=== PATIENT | male | born 1965 | race African-American/Black ===

== ENCOUNTER 2018-10-15 14:33 | Emergency (ER) | payer SELFPAY ==
[~2018-10-15] VITALS: Ht 185.4 cm; Wt 87.5 kg
[2018-10-15] MEDS ORDERED: CARVEDILOL 12.5 MG TABLET. PO STA (14:59)
[2018-10-15] MEDS ORDERED: LISINOPRIL 10 MG TABLET PO ONE (15:00)
[2018-10-15] MEDS ORDERED: hydroCHLOROthiazide 12.5 MG CAPSULE PO ONE (15:00)
--- NOTE | 2018-10-15 15:40 | RAD ---
Examination: 4 views of the right knee and 3 views of the right ankle COMPARISON: None available HISTORY: History of fall, pain COMPARISON: None available. FINDINGS: The alignment of the knee joint grossly appears unremarkable. There is no obvious acute fracture or dislocation identified. Small knee joint effusion. Mild probable soft tissue swelling identified anterior to the knee joint. The alignment of the ankle mortise grossly appears unremarkable. Mild soft tissue swelling identified lateral to lateral malleolus IMPRESSION: 1. No obvious acute fracture is evident. 2. Mild soft tissue swelling identified to lateral malleolus and anterior to the knee joint could be soft tissue swelling or injury.Small knee joint effusion. Electronically signed by: Pedro Childers MD (10/15/2018 3:37 PM) [place] [id number]
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
[2018-10-15 16:29] VITALS: BP 168/94
[2018-10-15] MEDS ORDERED: CARV12.5 PO (16:34)
[2018-10-15] MEDS ORDERED: LISI1TAB3 PO (16:34)
== END 2018-10-15 16:39 | disposition home or self-care (01) ==
LOC: ER 14:33
DX: S83.8X1A Sprain of other specified parts of right knee, initial encounter (principal); S93.491A Sprain of other ligament of right ankle, initial encounter; I10 Essential (primary) hypertension; Z76.0 Encounter for issue of repeat prescription; W18.39XA Other fall on same level, initial encounter; Y93.89 Activity, other specified; Y92.89 Other specified places as the place of occurrence of the external cause; Y99.8 Other external cause status
CPT/HCPCS: 73564; 73610; 99284

== ENCOUNTER 2018-12-24 11:59 | Emergency (ER) | payer MEDICARE ==
[~2018-12-24] VITALS: Ht 185.4 cm; Wt 88.5 kg
[~2018-12-24 11:59] MED LIST: CARV12.5 PO; LISI1TAB3 PO
--- NOTE | 2018-12-24 12:16 | PHYS DOC ---
Past Medical History Past Medical History: Hypertension Past Surgical History: No Surgical History Alcohol Use: Sober Drug Use: Marijuana Adult General Chief Complaint Chief Complaint: NEURO SYMPTOMS/DEFICITS HPI HPI 53-year-old male presenting the emergency room today with right arm weakness and numbness started at 9 PM last night. Patient noticed symptoms on December 23, 2018. He denies any slurred speech or facial droop. He has a history of high blood pressure. Otherwise he denies any symptoms. Duration constant/mildly improving. No alleviating or exacerbating factors. It seemed to come on all of a sudden. Past medical history: Hypertension Surgical history: None Social history former smoker, former drinker, occasional marijuana use. Allergies: Shellfish ROS neg for chest pain shortness of breath abdominal pain fevers chills headache vision changes or double vision or difficulty walking. All other review of systems is negative. ED course: 53-year-old male presenting with right arm weakness and numbness. Head CT ordered along with blood work EKG and angiogram of the head neck. EKG obtained and reviewed by myself shows sinus bradycardia. ST segments congruent. Not suggestive of ACS. Nonspecific T-wave flattening and inversions in the inferior leads. CT angiogram read decreased contrast opacification in the middle cerebral artery. Pt is not a TPA candidate due to timing. greater than 4.5 hours since lkw. Given the timeframe of his symptoms, I called the [facility] to consult on whether mechanical thrombectomy would be an option. Head CT was negative. Lab work was unremarkable. I spoke with Dr. Mooney who recommended transfer for evaluation for possible thrombectomy. The patient was then transferred emergently for evaluation. Current Medications Current Medications Current Medications Medications (Trade) Dose Ordered Sig/Kirti Start Time Stop Time Status Last Admin Dose Admin Info (CONTRAST GIVEN -- Rx MONITORING) 1 each PRN DAILY PRN 12/24/18 13:15 12/24/18 15:46 DC Iohexol (Omnipaque 350 Mg/ml) 75 ml 1X ONCE 12/24/18 13:15 12/24/18 13:16 DC 12/24/18 13:45 75 ML Allergies Allergies Allergies Coded Allergies Type Severity Reaction Last Updated Verified No Known Drug Allergies 10/15/18 No Physical Exam Physical Exam Constitutional: Well developed, well nourished, no acute distress, non-toxic appearance. [] HENT: Normocephalic, atraumatic, bilateral external ears normal, oropharynx moist, no oral exudates, nose normal. [] Eyes: PERRLA, EOMI, conjunctiva normal, no discharge. [] Neck: Normal range of motion, no tenderness, supple, no stridor. [] Cardiovascular:Heart rate regular rhythm, no murmur [] Lungs & Thorax: Bilateral breath sounds clear to auscultation [] Abdomen: Bowel sounds normal, soft, no tenderness, no masses, no pulsatile masses. [] Skin: Warm, dry, no erythema, no rash. [] Back: No tenderness, no CVA tenderness. [] Extremities: No tenderness, no cyanosis, no clubbing, ROM intact, no edema. [] Neurologic: Mental status: Awake oriented and alert x3 Cranial nerves: Extraocular movements intact, eyebrows edna bilaterally, smile symmetric, uvula elevation nl, shoulder shrug intact bilaterally, tongue protrusion normal DTRs: 2+ Sensation: equal and normal in all extremities Strength: 5/5 in upper and lower extremities bilaterally Finger to nose and heel to melissa is within normal limits. Psychologic: Affect normal, judgement normal, mood normal. [] Current Patient Data Vital Signs Vital Signs Date Time Temp Pulse Resp B/P (MAP) Pulse Ox O2 Delivery O2 Flow Rate FiO2 12/24/18 15:17 52 18 97 12/24/18 12:40 98.3 189/100 (129) Room Air 98.3 Lab Values Laboratory Tests Test 12/24/18 12:51 12/24/18 14:56 White Blood Count 7.9 x10^3/uL (4.0-11.0) Red Blood Count 4.32 x10^6/uL (4.30-5.70) Hemoglobin 13.0 g/dL (13.0-17.5) Hematocrit 38.9 % (39.0-53.0) L Mean Corpuscular Volume 90 fL (79-100) Mean Corpuscular Hemoglobin 30 pg (25-35) Mean Corpuscular Hemoglobin Concent 34 g/dL (31-37) Red Cell Distribution Width 14.3 % (11.5-14.5) Platelet Count 208 x10^3/uL (140-400) Neutrophils (%) (Auto) 56 % (31-73) Lymphocytes (%) (Auto) 29 % (24-48) Monocytes (%) (Auto) 13 % (0-9) H Eosinophils (%) (Auto) 2 % (0-3) Basophils (%) (Auto) 0 % (0-3) Neutrophils # (Auto) 4.4 x10^3/uL (1.8-7.7) Lymphocytes # (Auto) 2.3 x10^3/uL (1.0-4.8) Monocytes # (Auto) 1.0 x10^3/uL (0.0-1.1) Eosinophils # (Auto) 0.2 x10^3/uL (0.0-0.7) Basophils # (Auto) 0.0 x10^3/uL (0.0-0.2) Sodium Level 144 mmol/L (136-145) Potassium Level 3.8 mmol/L (3.5-5.1) Chloride Level 106 mmol/L (98-107) Carbon Dioxide Level 31 mmol/L (21-32) Anion Gap 7 (6-14) Blood Urea Nitrogen 15 mg/dL (8-26) Creatinine 1.0 mg/dL (0.7-1.3) Estimated GFR (Cockcroft-Gault) 93.9 BUN/Creatinine Ratio 15 (6-20) Glucose Level 125 mg/dL (70-99) H Calcium Level 8.7 mg/dL (8.5-10.1) Total Bilirubin 0.2 mg/dL (0.2-1.0) Aspartate Amino Transferase (AST) 18 U/L (15-37) Alanine Aminotransferase (ALT) 23 U/L (16-63) Alkaline Phosphatase 80 U/L (46-116) Troponin I Quantitative 0.017 ng/mL (0.000-0.055) Total Protein 7.0 g/dL (6.4-8.2) Albumin 3.2 g/dL (3.4-5.0) L Albumin/Globulin Ratio 0.8 (1.0-1.7) L Urine Collection Type Unknown Urine Color Yellow Urine Clarity Clear Urine pH 8.0 Urine Specific Prince >=1.030 Urine Protein Negative mg/dL (NEG-TRACE) Urine Glucose (UA) Negative mg/dL (NEG) Urine Ketones (Stick) Negative mg/dL (NEG) Urine Blood Negative (NEG) Urine Nitrite Negative (NEG) Urine Bilirubin Negative (NEG) Urine Urobilinogen Dipstick 0.2 mg/dL (0.2 mg/dL) Urine Leukocyte Esterase Negative (NEG) Urine RBC 0 /HPF (0-2) Urine WBC Occ /HPF (0-4) Urine Squamous Epithelial Cells Few /LPF Urine Amorphous Sediment Present /HPF Urine Bacteria 0 /HPF (0-FEW) Urine Mucus Slight /LPF Laboratory Tests 12/24/18 12:51 Laboratory Tests 12/24/18 12:51 EKG EKG [] Radiology/Procedures Radiology/Procedures [] Course & Med Decision Making Course & Med Decision Making Pertinent Labs and Imaging studies reviewed. (See chart for details) [] Dragon Disclaimer Dragon Disclaimer This electronic medical record was generated, in whole or in part, using a voice recognition dictation system. Departure Departure Impression: Primary Impression: Stroke-like symptoms Disposition: 02 TRANSFER [facility] Condition: STABLE Referrals: NO PCP (PCP) AMAURY CHRISTIANSEN MD Dec 24, 2018 12:16
[2018-12-24 13:04] LABS: BASO % 0 % (0-3); EOS # 0.2 x10^3/uL (0.0-0.7); EOS % 2 % (0-3); HEMATOCRIT 38.9 % (39.0-53.0); LYMPH # 2.3 x10^3/uL (1.0-4.8); LYMPH % 29 % (24-48); MEAN CORPUSCULAR HEMOGLOBIN 30 pg (25-35); MEAN CORPUSCULAR HGB CONC 34 g/dL (31-37); MEAN CORPUSCULAR VOLUME 90 fL (79-100); MONO % 13 % (0-9); NEUT # 4.4 x10^3/uL (1.8-7.7); NEUT % 56 % (31-73); PLATELET COUNT 208 x10^3/uL (140-400); RED BLOOD COUNT 4.32 x10^6/uL (4.30-5.70); RED CELL DISTRIBUTION WIDTH 14.3 % (11.5-14.5); WHITE BLOOD COUNT 7.9 x10^3/uL (4.0-11.0)
[2018-12-24] MEDS ORDERED: IOHEXOL 350 MG/ML 100 ML VIAL. IV ONE (13:15)
[2018-12-24] MEDS ORDERED: CONTRAST GIVEN. MC PRN (13:15)
[2018-12-24 13:28] LABS: CALCIUM 8.7 mg/dL (8.5-10.1); GFR 93.9; POTASSIUM 3.8 mmol/L (3.5-5.1)
[2018-12-24 13:33] LABS: ALBUMIN 3.2 g/dL (3.4-5.0); ALBUMIN/GLOBULIN RATIO 0.8 (1.0-1.7); TOTAL BILIRUBIN 0.2 mg/dL (0.2-1.0)
--- NOTE | 2018-12-24 14:19 | EKG ---
[facility] [address] [place] [address] Test Date: 2018-12-24 Test Time: 12:40:48 Pat Name: RAMU SCHWAB Department: Room: Gender: M Transportation Superintendent: : [id number] Requested By: AMAURY CHRISTIANSEN Order Number: [id number] Reading MD: Measurements Intervals [place] Rate: 59 P: 48 [place]: 188 QRS: -27 QRSD: 96 T: -7 QT: 412 QTc: 408 Interpretive Statements SINUS RHYTHM LEFTWARD AXIS QRS(T) CONTOUR ABNORMALITY CONSIDER ANTEROSEPTAL MYOCARDIAL DAMAGE POSSIBLY ABNORMAL ECG RI6.01 No previous ECG available for comparison
--- NOTE | 2018-12-24 14:19 | RAD ---
EXAM: CT angiogram of the head and neck with intravenous contrast. HISTORY: Right arm numbness and weakness. TECHNIQUE: Computed tomographic images the head and neck were obtained following the administration of 75 cc Omnipaque 350 intravenous contrast. Three-dimensional maximum intensity projection images were obtained. *One or more of the following individualized dose reduction techniques were utilized for this examination: 1. Automated exposure control. 2. Adjustment of the mA and/or kV according to patient size. 3. Use of iterative reconstruction technique. COMPARISON: None. FINDINGS: There is a common origin of the right innominate and left common carotid arteries, a normal aortic arch branching variant. There is increased soft tissue density within the anterior mediastinum which is partially excluded from the [id number] and likely due to lymphatic tissue rather than thymic tissue given the patient age. There is mild emphysema. There is no pneumothorax. There is no suspicious pulmonary nodule within the [id number]. There is partially calcified atherosclerotic plaque at the origin of the right subclavian artery, with less than 25% stenosis. There is mild partially calcified plaque at the origin of the left subclavian artery, with less than 25% stenosis. There is mild intimal thickening involving both common carotid arteries. There is partially calcified scar plaque within the proximal to mid bilateral internal carotid arteries, with less than 25% stenosis. The distal right internal carotid artery is tortuous at the level of the skull base. There is partially calcified atherosclerotic plaque within the cavernous internal carotid arteries, resulting in approximately 50% stenosis on the left and less than 50% stenosis on the right. The bilateral P1 segments are not well seen and may be absent or hypoplastic. The basilar artery is patent. The proximal right vertebral artery is tortuous. The vertebral arteries are codominant. There is minimal plaque at the origin of the left vertebral artery, with less than 25% stenosis. There is a relative decreased flow within the left middle cerebral artery and arterial branches. No filling defect is seen, favoring low flow due to proximal stenosis. No suspicious enhancing lesion is seen. There is no mass effect or midline shift. There is mild cerebral volume loss, slightly greater than expected for patient age. Evaluation for hemorrhage is limited in the presence of intravenous contrast. The orbits are unremarkable. There is a cyst within the anterior maxilla slightly to the left of midline measuring 2.0 cm, likely an incisive canal cyst. There is lucency surrounding the roots of the left first maxillary molar, likely due to a periapical abscess. There is decreased left maxillary sinus size possibly due to the sequela of chronic sinusitis. The temporal minimal joints are intact. The mastoid air cells are unremarkable. There is cervical kyphosis and mild anterolisthesis at multiple cervical levels. There are degenerative changes throughout the cervical spine. This includes disc bulges with disc osteophyte complexes, facet and uncovertebral arthropathy. This results in mild left foraminal stenosis at C2-C3, mild right foraminal stenosis at C3-C4, and mild left foraminal stenosis at C5-C6. The parotid, submandibular and thyroid glands are unremarkable. There is a small lipoma within the posterior right neck soft tissues. There are multiple prominent bilateral neck lymph nodes, none of which appear to be pathologically enlarged. IMPRESSION: 1. Limited exam due to suboptimal contrast opacification of the head and neck arteries. 2. Relative decreased contrast opacification of the left middle cerebral artery and arterial branches. This is greater than expected for a developmental etiology, and likely due to relative decreased flow within the left middle cerebral artery distribution. There is approximately 50% stenosis involving the cavernous left ICA. No convincing filling defect to suggest embolus is seen. 3. Mild atherosclerotic plaque involving the proximal and mid internal carotid arteries and cavernous segments of the internal carotid arteries, described above. There is also mild atherosclerosis at the origin of the left vertebral artery. 4. Note is made that MRI is more sensitive for acute infarction. Given a history of right arm numbness and weakness and aforementioned findings involving the middle cerebral artery distribution, MRI is recommended clinically feasible. PQRS Compliance Statement - Stenosis calculations for CT, MR and conventional angiography are based upon measurement of the distal ICA diameter in accordance with the NASCET methodology. Stenosis calculations for carotid ultrasound studies are derived from validated velocity criteria which are known to correlate with the NASCET methodology. Electronically signed by: Ashlie Rosen MD (12/24/2018 2:16 PM) [place] [id number]
--- NOTE | 2018-12-24 15:02 | RAD ---
CT HEAD WO CONTRAST History: Right arm numbness and weakness. Comparison: None. Technique: Noncontrast CT imaging was performed of the head. Exposure: One or more of the following individualized dose reduction techniques were utilized for this examination: 1. Automated exposure control 2. Adjustment of the mA and/or kV according to patient size 3. Use of iterative reconstruction technique. Findings: No intracranial hemorrhage. No mass effect. No hydrocephalus. Imaged orbits are unremarkable. Imaged paranasal sinuses and mastoid air cells are clear. Impression: 1. No acute intracranial abnormality. Electronically signed by: Moe Swanson DO (12/24/2018 2:59 PM) [id number]
[2018-12-24 15:06] LABS: BILIRUBIN,URINE NEGATIVE (NEG); CLARITY,URINE CLEAR; COLOR,URINE YELLOW; NITRITE,URINE NEGATIVE (NEG); PROTEIN,URINE NEGATIVE (NEG-TRACE); UROBILINOGEN,URINE 0.2 mg/dL (0.2 mg/dL)
[2018-12-24 15:17] VITALS: BP 191/107
[2018-12-24 15:22] LABS: SQUAMOUS EPITHELIAL CELL,UR FEW /LPF
[2018-12-24 15:23] LABS: AMORPHOUS SEDIMENT,UR PRESENT /HPF; BACTERIA,URINE 0 /HPF (0-FEW); RBC,URINE 0 /HPF (0-2); WBC,URINE OCC /HPF (0-4)
== END 2018-12-24 15:46 | disposition short-term general hospital (02) ==
LOC: ER 11:59
DX: R20.0 Anesthesia of skin (principal); R53.1 Weakness; I10 Essential (primary) hypertension; Z87.891 Personal history of nicotine dependence; F12.20 Cannabis dependence, uncomplicated; Z91.013 Allergy to seafood
CPT/HCPCS: 36415; 70450; 70496; 70498; 80053; 81001; 84484; 85025; 93005; 99285; Q9967